=== PATIENT | female | born 1940 | race Caucasian/White ===

== ENCOUNTER 2016-11-28 13:15 | Inpatient (IN) | payer OTHER ==
[~2016-11-28] VITALS: Ht 160 cm; Wt 41.7 kg
[2016-11-28 13:30] VITALS: BP 136/72
--- NOTE | 2016-11-28 13:30 | NUR ---
PATIENT PRESENTS TO ED BY AMBULANCE . PT RESIDES IN [facility] ASSISTED LIVING RIGHT HIP/RLE S/P GLF TODAY. NO SHORTENING OR ROTATION OF RLE NOTED. SKIN PINK DRY WARM TO TOUCH. HX----DEMENTIA, HTN, COPD,TIA, GERD, PSYCH RX----ZANTAC, TRAZODONE, DEPAKOTE, ALBUTEROL, MOM, TYLENOL, AMLODIPINE,LYNDA ELLIPTA,COLACE, PEPCID, ATIVAN, OMEPRAZOLE, SEROQUEL,CELEXA. DENIES N/V/D; SKIN IS PINK/WARM/DRY; AAOX4 WITH EVEN AND STEADY GAIT; LUNGS CLEAR BL; HR EVEN AND REGULAR; PT DENIES ANY FEVER, CP, SOB, OR COUGH AT THIS TIME; PATIENT STATES PAIN OF 9/10 AT THIS TIME; VSS; PATIENT POSITIONED FOR COMFORT; HOB ELEVATED; BEDRAILS UP X2; BED DOWN. ER MD MADE AWARE OF PT STATUS.
[2016-11-28] MEDS ORDERED: HYDROmorphone 1 MG/ML AMP IM ONE (13:45)
[2016-11-28 15:37] LABS: BLOOD GAS BASE EXCESS 5.5 mmol/L (-2.0-2.0); BLOOD GAS HCO3 32.5 mmol/L; BLOOD GAS O2 SAT% 87.6 % (92.0-98.5); BLOOD GAS PCO2 58.8 mmHg (20-50); BLOOD GAS PO2 58.6 mmHg
--- NOTE | 2016-11-28 15:45 | NUR ---
XRAY TAKEN AT BEDSIDE
--- NOTE | 2016-11-28 16:10 | NUR ---
TO CT AT THIS TIME
--- NOTE | 2016-11-28 16:45 | NUR ---
TRANSFERRED PATIENT TO TELE IN STABLE CONDITION. REPORT GIVEN TO CUTTER DOWN. MADE COMFORTABLE IN BED. CALL LIGHT WITHIN REACH.
[2016-11-28] MEDS ORDERED: NACL 0.9% 1,000 ML IV SCH (17:29)
[2016-11-28] MEDS ORDERED: HYDROcodone/APAP 7.5/325 MG 1 TAB PO PRN (17:30)
[2016-11-28] MEDS ORDERED: ONDANSETRON 4 MG/2 ML VIAL IVP PRN ×2 (17:30→20:05)
[2016-11-28 17:55] LABS: HEMATOCRIT 35.6 % (36-48); HEMOGLOBIN 11.4 g/dL (12.0-16.0); MEAN CORPUSCULAR HEMOGLOBIN 30 pg (27-31); MEAN CORPUSCULAR HGB CONC 32 g/dL (33-37); MEAN CORPUSCULAR VOLUME 92 fL (80-94); PLATELET COUNT (AUTO) 156 K/uL (140-450); RED BLOOD CELL COUNT(AUTO) 3.88 MIL/uL (4.20-5.40); RED CELL DISTRIBUTION WIDTH 14.3 % (11.6-13.7); WHITE BLOOD COUNT (AUTO) 8.6 K/uL (4.8-10.8)
[2016-11-28 18:02] LABS: ANION GAP 9.9 (8-16); CALCIUM 8.7 mg/dL (8.5-10.1); CARBON DIOXIDE 33.2 mmol/L (21-32); CHLORIDE 103 mmol/L (98-107); CREATININE 0.6 mg/dL (0.6-1.3); GLUCOSE 115 mg/dL (74-106); POTASSIUM 4.1 mmol/L (3.5-5.1); SODIUM SERUM 142 mmol/L (136-145); UREA NITROGEN, BLOOD 22 mg/dL (7-18)
[2016-11-28 18:07] LABS: ALANINE AMINOTRANSFERASE 80 U/L (14-59); ALBUMIN 2.9 g/dL (3.4-5.0); ALKALINE PHOSPHATASE 146 U/L (46-116); ASPARTATE AMINOTRANSFERASE 43 U/L (15-37); TOTAL BILIRUBIN 0.6 mg/dL (0.0-1.0); TOTAL PROTEIN, SERUM 6.5 g/dL (6.4-8.2)
[2016-11-28 18:15] LABS: INR 1.1 (0.8-1.2); PARTIAL THROMBOPLASTIN TIME 28.6 secs (22-35.6); PROTHROMBIN TIME 11.3 secs (10.8-13.4)
[2016-11-28 18:16] LABS: BAND % (MANUAL) 9 % (0-8); EOSINOPHILS % (MANUAL) 1 % (0-4); LYMPHOCYTES % (MANUAL) 7 % (20-46); METAMYELOCYTES % 1 % (0-0); MONOCYTES % (MANUAL) 5 % (5-12); NEUTROPHILS % (MANUAL) 77 (43-65)
[2016-11-28 18:17] LABS: CHOL/HDL RATIO 2.2 (1-4.5); FREE T4 (FREE THYROXINE) 0.95 ng/dL (0.76-1.46); PHOSPHORUS 3.8 mg/dL (2.5-4.9); PLATELET ESTIMATE ADEQUATE; THYROID STIMULATING HORMONE 3.01 uIU/mL (0.34-3.74)
[2016-11-28 18:41] LABS: APPEARANCE,URINE HAZY (CLEAR); BILIRUBIN,URINE NEGATIVE (NEGATIVE); BLOOD, URINE NEGATIVE (NEGATIVE); COLOR,URINE YELLOW (YELLOW); LEUKOCYTE ESTERASE ,URINE NEGATIVE (NEGATIVE); NITRITE, URINE NEGATIVE (NEGATIVE); PROTEIN,URINE 1+ (NEGATIVE); UGLUCOSE NEGATIVE (NEGATIVE)
[2016-11-28 18:46] LABS: BACTERIA,URINE 1-9 (FEW) /HPF (None Seen); RBC,URINE 0-5 (RARE) /HPF (0-5)
[2016-11-28 18:55] LABS: AMPHETAMINE, URINE NEG. ng/ml (NEG <=1000); BARBITURATE, URINE NEG. ng/ml (NEG <=200); BENZODIAZEPINE, URINE NEG. ng/mL (NEG <=200); CANNABINOID, URINE NEG. ng/mL (NEG <=50); COCAINE, URINE NEG. ng/mL (NEG <=300); OPIATE, URINE NEG. ng/mL (NEG <=2000); PHENCYCLIDINE SCREEN,URINE NEG. ng/mL (NEG <=25)
--- NOTE | 2016-11-28 19:21 | NUR ---
ENDORSED PLAN OF CARE TO NIGHT RN. PT REMAINS STABLE.
[2016-11-28] MEDS: ACETAMINOPHEN 325 MG TAB PO PRN (19:26)
--- NOTE | 2016-11-28 19:30 | NUR ---
RECEIVED PATIENT REPORT AT BEDSIDE. PATIENT ASLEEP BUT AROUSABLE. PATIENT'S AND DAUGHTER PRESENT IN THE ROOM. ABRASION NOTED ON THE RIGHT SHOULDER AND RIGHT KNEE. IV NOTED TO THE LEFT UPPER ARM WITH IVF INFUSING WELL. PATIENT PLACED ON 3L 02 VIA NC. 02 SAT 92%. PATIENT PLACED ON TELE MONITORING. BED LOWERED WITH CALL LIGHT WITHIN REACH. WILL CONTINUE TO MONITOR
[2016-11-28 20:00] VITALS: BP 147/80
[2016-11-28] MEDS ORDERED: LORazepam 2 MG/ML VIAL IVP SCH ×2 (20:00→20:05)
--- NOTE | 2016-11-28 20:00 | NUR ---
TEMP 101.9. COOLING MEASURE IN PLACE. PRN TYLENOL ADMINISTERED. WILL CONTINUE TO MONITOR
[2016-11-28] MEDS ORDERED: HYDROcodone/APAP 5/325 MG 1 TAB TAB PO PRN (20:05)
[2016-11-28] MEDS ORDERED: MORPHINE SULFATE 2 MG/ML SYR IVP PRN (20:05)
[2016-11-28] MEDS ORDERED: AMLO5TAB PO (20:09)
[2016-11-28] MEDS ORDERED: CITA20TA15 PO (20:10)
[2016-11-28] MEDS ORDERED: DOCU-67 PO (20:11)
[2016-11-28] MEDS ORDERED: QUET25TA PO (20:12)
[2016-11-28] MEDS ORDERED: FAMO20TA13 PO (20:13)
[2016-11-28] MEDS ORDERED: ATI.5 PO (20:17)
[2016-11-28] MEDS ORDERED: [UNRECOGNIZED DRUG - CODE] PO (20:17)
[2016-11-28] MEDS ORDERED: RANI300S3 PO (20:17)
[2016-11-28] MEDS ORDERED: VALP250S5 PO (20:17)
[2016-11-28] MEDS ORDERED: LORazepam 0.5 MG TAB PO PRN (20:20)
[2016-11-28] MEDS ORDERED: ALBUTEROL SULFATE/IPRATROPIU 3 ML SOL IH PRN (20:25)
--- NOTE | 2016-11-28 20:30 | NUR ---
PIERCE'S TRACTION WITH 5LBS WEIGHT APPLIED TO THE PATIENT'S RIGHT LEG BY DR SUERO. PATIENT ASLEEP. NO S/S OF DISTRESS NOTED. WILL CONTINUE TO MONITOR
--- NOTE | 2016-11-28 20:45 | NUR ---
TEMP RECHECKED 99.3. PATIENT ASLEEP. NO S/S OF DISTRESS NOTED
[2016-11-28] MEDS: CITALOPRAM 20 MG TAB PO SCH (21:00)
[2016-11-28] MEDS: DOCUSATE SODIUM 100 MG GELCAP PO SCH (21:00)
[2016-11-28] MEDS ORDERED: NON-FORMULARY ITEM (Trazodone HCl 1 TAB) PO SCH (21:00)
[2016-11-28] MEDS: methylPREDNISolone SS 40 MG/ML VIAL IVP SCH ×2 (21:00→21:43)
[2016-11-28] MEDS: VALPROIC ACID 250 MG/5 ML UDC PO SCH (21:00)
[2016-11-28] MEDS ORDERED: DOCUSATE SODIUM 100 MG GELCAP PO SCH (21:00)
[2016-11-28] MEDS: QUEtiapine FUMARATE 25 MG TAB PO SCH (21:00)
--- NOTE | 2016-11-28 21:00 | NUR ---
SPOKE WITH DR REYNOLDS REGARDING SECOND DOSE OF SOLUMEDROL . NOTIFIED THAT FIRST DOSE WAS ADMINISTERED. PER DR, SECOND DOSE CAN BE ADMINISTERED TOMORROW MORNING. TO PUT ORDERS. PATIENT ON 3L O2. O2 SAT AT 95%
[2016-11-29] VITALS: BP 145/63
[2016-11-29] MEDS: DEXT 5% / NACL 0.9% 1,000 ML IV SCH ×3 (00:04→16:28)
[2016-11-29] MEDS: ALBUTEROL SULFATE/IPRATROPIU 3 ML SOL IH SCH ×4 (00:30→19:00)
[2016-11-29 04:00] VITALS: BP 124/58
--- NOTE | 2016-11-29 04:53 | NUR ---
PATIENT ASLEEP IN BED. NO S/S OF DISTRESS NOTED
[2016-11-29] MEDS: BUDESONIDE 0.25 MG/2 ML NEBU INH SCH ×2 (06:55→19:06)
[2016-11-29 06:56] LABS: HEMOGLOBIN 12.2 g/dL (12.0-16.0); MEAN CORPUSCULAR HEMOGLOBIN 30 pg (27-31); MEAN CORPUSCULAR HGB CONC 33 g/dL (33-37); MEAN CORPUSCULAR VOLUME 91 fL (80-94); PLATELET COUNT (AUTO) 136 K/uL (140-450); RED BLOOD CELL COUNT(AUTO) 4.05 MIL/uL (4.20-5.40); RED CELL DISTRIBUTION WIDTH 14.3 % (11.6-13.7); WHITE BLOOD COUNT (AUTO) 6.1 K/uL (4.8-10.8)
[2016-11-29 07:03] LABS: ANION GAP 7.4 (8-16); CALCIUM 8.8 mg/dL (8.5-10.1); CHLORIDE 104 mmol/L (98-107); CREATININE 0.6 mg/dL (0.6-1.3); GLUCOSE 148 mg/dL (74-106); POTASSIUM 4.4 mmol/L (3.5-5.1); SODIUM SERUM 141 mmol/L (136-145); UREA NITROGEN, BLOOD 26 mg/dL (7-18)
[2016-11-29 07:12] LABS: MAGNESIUM 2.1 mg/dL (1.8-2.4); PHOSPHORUS 3.9 mg/dL (2.5-4.9)
--- NOTE | 2016-11-29 07:27 | NUR ---
PATIENT REPORT GIVEN AT BEDSIDE. PATIENT ENDORSED IN STABLE CONDITION
--- NOTE | 2016-11-29 07:27 | NUR ---
RECEIVED REPORT FROM NIGHT NURSE, PT IS AAOX2, ON O2 3L VIA NC, RIGHT ELBOW ABRASION WITH DRESSING, RIGHT KNEE ABRASION OPEN TO AIR, IV LEFT UPPER ARM 20G INFUSING WELL, PT ON PIERCE'S TRACTION, INITIAL ASSESSMENT COMPLETED, REVIEWED PLAN OF CARE WITH PT, REINFORCEMENT NEEDED, ALL SAFETY PRECAUTIONS MET. CALL LIGHT WITHIN REACH, WILL CONTINUE TO MONITOR.
[2016-11-29 07:32] LABS: INR 1.1 (0.8-1.2); PARTIAL THROMBOPLASTIN TIME 30.8 secs (22-35.6); PROTHROMBIN TIME 11.1 secs (10.8-13.4)
[2016-11-29 08:00] VITALS: BP 149/61
[2016-11-29 08:16] LABS: BAND % (MANUAL) 3 % (0-8); BASOPHILS % (MANUAL) 0 % (0-2); EOSINOPHILS % (MANUAL) 0 % (0-4); LYMPHOCYTES % (MANUAL) 7 % (20-46); MONOCYTES % (MANUAL) 5 % (5-12); NEUTROPHILS % (MANUAL) 85 (43-65)
[2016-11-29 08:17] LABS: PLATELET ESTIMATE SLIGHTLY DECREASED
[2016-11-29] MEDS ORDERED: [UNRECOGNIZED DRUG - CODE] PO (08:55)
[2016-11-29] MEDS ORDERED: LORazepam 0.5 MG TAB PO PRN ×2 (09:00→13:05)
[2016-11-29] MEDS ORDERED: NON-FORMULARY ITEM (Ranitidine HCl (Ranitidine Hcl) 1 CAP) PO SCH (09:00)
[2016-11-29] MEDS: DOCUSATE SODIUM 100 MG GELCAP PO SCH ×2 (09:19→21:00)
[2016-11-29] MEDS: VALPROIC ACID 250 MG/5 ML UDC PO SCH ×2 (09:20→21:00)
[2016-11-29] MEDS: QUEtiapine FUMARATE 25 MG TAB PO SCH ×2 (09:20→21:00)
[2016-11-29] MEDS: amLODIPine 5 MG TAB PO SCH (09:21)
[2016-11-29] MEDS: FAMOTIDINE 20 MG TAB PO SCH (09:25)
--- NOTE | 2016-11-29 09:29 | NUR ---
MEDICATIONS GIVEN PT TOLERATED WELL. MEDICATIONS GIVEN ONE BY ONE. ALL SAFETY PRECAUTIONS MET, ALL NEEDS MET, CALL LIGHT WITHIN REACH. WILL CONTINUE TO MONITOR
--- NOTE | 2016-11-29 11:56 | NUR ---
CHECKED IN ON PT, NO S/S OF DISTRESS NOTED, DAUGHTER AT BEDSIDE. CALL LIGHT WITHIN REACH. WILL CONTINUE TO MONITOR.
[2016-11-29 12:02] VITALS: BP 135/54
--- NOTE | 2016-11-29 13:19 | NUR ---
PT AGAIN REFUSED BREATHING TX B\S ARE CLEAR AND NO SIGNS OF DISTRESS NOTED AND RN СВЕТЛАНА NOTIFIED
--- NOTE | 2016-11-29 14:25 | NUR ---
PT RESTING COMFORTABLY IN BED, NO S/S OF PAIN OR DISTRESS. CALL LIGHT WITHIN REACH, WILL CONTINUE TO MONITOR.
[2016-11-29 16:00] VITALS: BP 146/63
--- NOTE | 2016-11-29 16:05 | NUR ---
PT RESTING IN BED, ALL SAFETY PRECAUTIONS MET, CALL LIGHT WITHIN REACH, WILL CONTINUE TO MONITOR.
[2016-11-29 17:17] LABS: INR 1.1 (0.8-1.2); PROTHROMBIN TIME 11.6 secs (10.8-13.4)
--- NOTE | 2016-11-29 17:45 | NUR ---
PT CURRENTLY EATING DINNER, ALL NEEDS MET. WILL CONTINUE TO MONITOR.
--- NOTE | 2016-11-29 19:06 | NUR ---
PATIENT REFUSED HHN DUONEB AND PULMICORT, STATED SHE DOES NOT [facility] HHN ANYMORE AND ONLY WANTS THE RED PILL. PATIENT SEEMS CONFUSED
--- NOTE | 2016-11-29 19:14 | NUR ---
ENDORSED PLAN OF CARE TO NIGHT NURSE, PT STABLE CONDITION.
--- NOTE | 2016-11-29 19:15 | NUR ---
RECEIVED PATIENT REPORT AT BEDSIDE. PATIENT AWAKE AND ALERT. NO S/S OF DISTRESS NOTED. PATIENT ON 2L O2. NO C/O PAIN AT THIS TIME. PIERCE'S TRACTION IN PLACE. IV LINE TO THE LEFT UPPER ARM INTACT WITH IVF INFUSING WELL. TAVAREZ CATHETER IN PLACE. BED LOWERED WITH CALL LIGHT WITHIN REACH. WILL CONTINUE TO MONITOR
--- NOTE | 2016-11-29 20:00 | NUR ---
PATIENT REFUSES TO HAVE HER VITAL SIGNS TAKEN. WILL TRY AGAIN LATER
--- NOTE | 2016-11-29 20:30 | NUR ---
PATIENT REFUSES TO TAKE HER SCHEDULED MEDICATIONS. PATIENT EDUCATED ABOUT THE RISKS OF NOT TAKING HER MEDICATIONS. PATIENT UNABLE TO VERBALIZE UNDERSTANDING. PATIENT IS CONFUSED. PATIENT OFFERED TO HAVE MEDICATIONS WITH APPLE SAUCE. PATIENT REFUSED. WILL TRY AGAIN LATER
[2016-11-29] MEDS: traZODone 50 MG TAB PO SCH (21:00)
[2016-11-29] MEDS: CITALOPRAM 20 MG TAB PO SCH (21:00)
[2016-11-30] VITALS (7 sets, daily range): BP systolic 130–171; BP diastolic 58–72
--- NOTE | 2016-11-30 | NUR ---
PATIENT REFUSES TO HAVE HER VITAL SIGNS TAKEN. PATIENT GETS AGITATED
--- NOTE | 2016-11-30 00:10 | NUR ---
PATIENT IN AWAKE IN BED. NO S/S OF DISTRESS NOTED
[2016-11-30] MEDS: ALBUTEROL SULFATE/IPRATROPIU 3 ML SOL IH SCH ×4 (00:15→19:00)
--- NOTE | 2016-11-30 00:16 | NUR ---
PATIENT REFUSED TABITHA LIMA
--- NOTE | 2016-11-30 06:00 | NUR ---
MADE DR REYNOLDS AWARE THAT PATIENT REFUSED BLOOD DRAW. ALSO NOTIFIED THAT PATIENT REFUSED HER SCHEDULED MEDICATIONS
[2016-11-30] MEDS: BUDESONIDE 0.25 MG/2 ML NEBU INH SCH ×2 (06:39→19:03)
--- NOTE | 2016-11-30 07:25 | NUR ---
ASSUMED CONTINUITY OF CARE. NO SIGNS AND SYMPTOMS OF ACUTE DISTRESS NOTED. INITIAL ASSESSMENT DONE. RE-ORIENTED TO EVENTS AND SURROUNDINGS. KEEP COMFORTABLE ON BED. FALL PRECAUTION APPLIED. CALL LIGHT WITHIN REACH.
--- NOTE | 2016-11-30 07:33 | NUR ---
PATIENT REPORT GIVEN AT BEDSIDE. PATIENT ENDORSED IN STABLE CONDITION
--- NOTE | 2016-11-30 08:00 | NUR ---
Patient's Plan of Care was discussed and reviewed with TREE LOADER MEAT: GAY STEVENS
--- NOTE | 2016-11-30 08:45 | NUR ---
CALLED DR. RODRIGUEZ AND INFORMED THAT DR. LOW ORDER NPO EXCEPT MEDS. DR. RODRIGUEZ ORDERED VIA PHONE NOT TO GIVE 0900 SCHEDULED MEDICINE DUE TO PROCEDURE, READ BACK AND VERIFIED. INFORMED MARC ANGUIANO THAT DR. RODRIGUEZ ORDERED NOT TO GIVE 0900 SCHEDULED MEDS DUE TO PROCEDURE.
[2016-11-30] MEDS: MORPHINE SULFATE 2 MG/ML SYR IVP PRN ×2 (08:58→16:48)
[2016-11-30] MEDS: QUEtiapine FUMARATE 25 MG TAB PO SCH ×2 (09:00→21:59)
[2016-11-30] MEDS: FAMOTIDINE 20 MG TAB PO SCH (09:00)
[2016-11-30] MEDS: VALPROIC ACID 250 MG/5 ML UDC PO SCH ×2 (09:00→21:58)
[2016-11-30] MEDS: amLODIPine 5 MG TAB PO SCH (09:00)
[2016-11-30] MEDS: DOCUSATE SODIUM 100 MG GELCAP PO SCH ×2 (09:00→22:00)
--- NOTE | 2016-11-30 09:16 | NUR ---
DR. RODRIGUEZ CAME, CHECKED PT. CHART, AND SEEN PT..
--- NOTE | 2016-11-30 09:36 | NUR ---
PATIENT HAS BEEN SCREENED AND CATEGORIZED HIGH NUTRITION RISK. PATIENT WILL BE SEEN WITHIN 1-2 DAYS OF ADMISSION. 11/29/16-11/30/[address]
--- NOTE | 2016-11-30 09:38 | NUR ---
WENT TO OR VIA GURNEY ACCOMPANIED BY FAMILY MEMBERS. IN STABLE CONDITION. INFORMED CHARGE NURSE WILLIAM LAW.
[2016-11-30] MEDS ORDERED: SEVOFLURANE 250 ML BTL INH ONE (09:50)
[2016-11-30] MEDS ORDERED: PROPOFOL 200 MG/20 ML VIAL IV ONE (09:50)
[2016-11-30] MEDS ORDERED: fentaNYL 0.05 MG/ML VIAL ONE (09:57)
[2016-11-30] MEDS ORDERED: MEPERIDINE 50 MG/ML SYR ONE (09:58)
[2016-11-30] MEDS ORDERED: BACITRACIN 50000 UNITS/1 VIAL ONE (10:00)
[2016-11-30] MEDS ORDERED: ceFAZolin 1,000 MG VIAL ONE (10:05)
[2016-11-30] MEDS ORDERED: MEPERIDINE 25 MG/ML SYR IVP PRN (10:50)
[2016-11-30] MEDS ORDERED: diphenhydrAMINE 50 MG/ML VIAL IVP PRN (10:50)
[2016-11-30] MEDS ORDERED: ONDANSETRON 4 MG/2 ML VIAL IVP PRN (10:50)
[2016-11-30] MEDS ORDERED: HYDROmorphone 1 MG/ML AMP IVP PRN (10:50)
[2016-11-30] MEDS ORDERED: BUPIVACAINE-MPF 0.5% 30 ML VIAL INJ ONE (11:10)
[2016-11-30] MEDS: DEXT 5% / NACL 0.9% 1,000 ML IV SCH (11:30)
--- NOTE | 2016-11-30 12:36 | NUR ---
PT BACK FROM SURGERY REFUSED BREATHING TX NO SIGNS OF DISTRESS NOTED
--- NOTE | 2016-11-30 14:02 | NUR ---
PULLED OUT TELE MONITOR AND REFUSED APPLICATION. NO DISTRESS NOTED. INFORMED REBECCA ANGUIANO THAT PT. REFUSED TELE MONITOR. ALSO INFORMED CHARGE NURSE WILLIAM LAW.
--- NOTE | 2016-11-30 14:04 | NUR ---
11/30/16 RD INITIAL ASSESSMENT COMPLETED PLEASE REFER TO NUTRITION ASSESSMENT UNDER CARE ACTIVITY FOR ESTIMATED NUTRITIONAL NEEDS. 1. WHEN MEDICALLY FEASIBLE, INITIATE PO DIET - TO START ON CLEAR LIQUID DIET AND ADVANCE TOLERATED TO REGULAR DIET 2. RD TO FOLLOW-UP 2-3 DAYS; HIGH RISK JOSE ALEJANDRO SMILEY, [place]
[2016-11-30] MEDS ORDERED: QUEtiapine FUMARATE 25 MG TAB PO SCH (14:53)
[2016-11-30] MEDS ORDERED: VALPROIC ACID 250 MG/5 ML UDC PO SCH (14:53)
[2016-11-30] MEDS ORDERED: amLODIPine 5 MG TAB PO SCH (15:14)
--- NOTE | 2016-11-30 15:14 | NUR ---
EXPLAINED MD ORDER, AND MEDICATION USAGE AND INDICATIONS. NON-COMPLIANT. REFUSED DEPAKENE [address] LOW THAT PT. REFUSED DEPAKENE [address] LOW SPOKE TO PT. REGARDING MEDICINE, PT. STILL REFUSED. INFORMED CHARGE NURSE WILLIAM LAW.
[2016-11-30] MEDS ORDERED: hydrALAZINE 20 MG/ML VIAL IVP PRN (15:20)
--- NOTE | 2016-11-30 15:25 | NUR ---
PT REFUSED TO BE INSTRUCTED ON IS AND LALO STEVENS NOTIFIED I.S IS AT BEDSIDE
--- NOTE | 2016-11-30 15:27 | NUR ---
RT -THUAN CAME FOR IS USE FOR POST-OP CARE. PT. REFUSED. EXPLAINED TO PT. IMPORTANCE OF IS FOR POST-OP. PT. STATES "NO, I DON'T WANT IT." IN A LOUD TONE OF VOICE. INFORMED WILLIAM TORRES -LALO.
--- NOTE | 2016-11-30 16:30 | NUR ---
CALLED TO PT'S ROOM DUE TO PT DESAT TO 87% PLACED PT ON 7L SIMPLE MASK AND PT WAS VERY AGITATED WITH STAFF DID NOT WANT TO HAVE MASK ON RN THOMAS AND LALO STEVENS AT BEDSIDE O2 SAT STARTING COMING UP TO 90% LALO GUZMAN HAD DR ORDER PAIN MED FOR PT THEN RT MARTHA PLACED PT ON OXYZIMER AT 6L AND O2 SAT WAS 97% AND PT WAS GIVEN MORPHINE FOR HER PAIN WHICH HELPED HER BREATHING PT STATED SHE DID NOT WANT BREATHING TX. PT IS STILL BREATHING FAST ABOUT 24 BPM HR IS 73 AND O2 SAT IS 98%
--- NOTE | 2016-11-30 17:40 | NUR ---
RESTING ON BED COMFORTABLY. NO SIGNS AND SYMPTOMS OF ACUTE DISTRESS NOTED. CONTINUE MONITORING.
--- NOTE | 2016-11-30 19:03 | NUR ---
patient refused HHN MEDICTION TREATMENT AND REFUSED INCENTIVE SPIROMETER. HR 71, SAO2 97% RR16, NO SIGNS OF RESP. DISTRESS
[2016-11-30] MEDS: LACTATED RINGERS 1,000 ML IV SCH (19:07)
--- NOTE | 2016-11-30 19:15 | NUR ---
BEDSIDE REPORT GIVEN TO SYDNEY LAW. IVF INFUSING WELL. IN STABLE CONDITION.
--- NOTE | 2016-11-30 19:30 | NUR ---
RECEIVED REPORT FROM AM NURSE. PT RESTING IN BED, AOX2, ABLE TO VERBALIZE NEEDS. PT IS REFUSING PALLIATIVE CARE NURSE PRACTITIONER AT THIS TIME, WILL TRY AGAIN LATER AND WILL NOTIFY MD. PT ON 6L O2 OXYMIZER, SPO2 97%, RR 20, NO SOB. PT IS REFUSING TO USE INCENTIVE SPIROMETER DESPITE EDUCATION OF INDICATION AND RISKS/BENEFITS, WILL NOTIFY MD. RIGHT HIP DRESSING NOTED, CLEAN DRY AND INTACT. PT DENIES PAIN, SOB OR S/S OF ACUTE DISTRESS. IV ACCESS ASYMPTOMATIC, PATENT AND INTACT. IVF INFUSING WELL. ALL NEEDS MET. BED ALARM AND SAFETY MEASURES ENSURED. CALL LIGHT WITHIN REACH. WILL CONTINUE TO MONITOR.
[2016-11-30] MEDS: traZODone 50 MG TAB PO SCH (21:58)
[2016-11-30] MEDS: CITALOPRAM 20 MG TAB PO SCH (21:59)
--- NOTE | 2016-11-30 21:59 | NUR ---
PT AGREED TO PUT ON HEAD MIXER AT THIS TIME. CONDITION STABLE.
--- NOTE | 2016-11-30 22:05 | NUR ---
PT REFUSED HER DUE MEDICATIONS AT FIRST DESPITE EDUCATION, STATING "I DON'T WANT TO TAKE THEM, IT'S TOO EARLY, YOU CAME AT THE WRONG TIME." MADE DR CARLIE REBOLLAR, TO SEE PT AT BEDSIDE. PT AGREED TO TAKE MEDICATIONS AT THIS TIME. DUE MEDICATIONS ADMINISTERED WITH EDUCATION. PT TOLERATED MEDS WELL. PT REFUSED TO USE INCENTIVE SPIROMETER DESPITE EDUCATION. MD AWARE. ALL NEEDS MET. SAFETY MEASURES ENSURED. CALL LIGHT WITHIN REACH.
[2016-12-01] VITALS (7 sets, daily range): BP systolic 120–151; BP diastolic 50–76
[2016-12-01] MEDS: DEXT 5% / NACL 0.9% 1,000 ML IV SCH ×3 (00:06→22:03)
--- NOTE | 2016-12-01 00:15 | NUR ---
PT SLEEPING COMFORTABLY. PT O2 OXYMIZER IN PLACE. TAVAREZ CATH DRAINING WELL. IVF INFUSING WELL. ALL NEEDS MET. SAFETY MEASURES ENSURED. CALL LIGHT WITHIN REACH. WILL CONTINUE TO MONITOR.
[2016-12-01] MEDS: ALBUTEROL SULFATE/IPRATROPIU 3 ML SOL IH SCH ×4 (01:00→19:00)
[2016-12-01] MEDS: LACTATED RINGERS 1,000 ML IV SCH (03:27)
--- NOTE | 2016-12-01 04:48 | NUR ---
PT C/O PAIN. SEE PAIN ASSESSMENT. ADMINISTERED NORCO PRN ORDERED WITH EDUCATION. PT STATED "OKAY," TOLERATED MED WELL. IVPB INFUSING WELL. ALL NEEDS MET AT THIS TIME. SAFETY MEASURES ENSURED. CALL LIGHT WITHIN REACH. WILL CONTINUE TO MONITOR .
[2016-12-01] MEDS: BUDESONIDE 0.25 MG/2 ML NEBU INH SCH ×2 (06:36→19:06)
--- NOTE | 2016-12-01 06:39 | NUR ---
PT REFUSES HHNS DECREASED FIO2 FROM 6L OXYMIZER TO 3L OXYMIZER SPO2 98
[2016-12-01 07:07] LABS: BASOPHILS % (AUTO) 0.5 % (0.0-2.0); EOSINOPHILS # (AUTO) 0.4 K/uL (0-0.4); EOSINOPHILS % (AUTO) 7.1 % (0.0-4.0); HEMATOCRIT 31.4 % (36-48); HEMOGLOBIN 10.1 g/dL (12.0-16.0); LYMPHOCYTES # (AUTO) 0.5 K/uL (2.5-16.5); LYMPHOCYTES % (AUTO) 9.2 % (20.5-51.1); MEAN CORPUSCULAR HEMOGLOBIN 30 pg (27-31); MEAN CORPUSCULAR HGB CONC 32 g/dL (33-37); MEAN CORPUSCULAR VOLUME 92 fL (80-94); MONOCYTES # (AUTO) 0.8 K/uL (0.8-1.0); MONOCYTES % (AUTO) 15.2 % (1.7-9.3); NEUTROPHILS # (AUTO) 3.6 K/uL (1.8-7.7); PLATELET COUNT (AUTO) 139 K/uL (140-450); RED BLOOD CELL COUNT(AUTO) 3.43 MIL/uL (4.20-5.40); RED CELL DISTRIBUTION WIDTH 14.5 % (11.6-13.7); WHITE BLOOD COUNT (AUTO) 5.3 K/uL (4.8-10.8)
--- NOTE | 2016-12-01 07:18 | NUR ---
ENDORSED PLAN OF CARE TO AM NURSE. CONDITION STABLE.
--- NOTE | 2016-12-01 07:25 | NUR ---
REPORT RECEIVED FROM NIGHT NURSE, NO PT COMPLAINTS AT THIS TIME, CALL LIGHT WITHIN REACH, SAFETY MEASURES WITHIN REACH, WILL MONITOR.
[2016-12-01 07:32] LABS: MAGNESIUM 1.7 mg/dL (1.8-2.4); PHOSPHORUS 3.2 mg/dL (2.5-4.9)
[2016-12-01 07:41] LABS: INR 1.2 (0.8-1.2); PROTHROMBIN TIME 11.8 secs (10.8-13.4)
[2016-12-01 07:55] LABS: CREATININE 0.5 mg/dL (0.6-1.3); GLUCOSE 122 mg/dL (74-106); UREA NITROGEN, BLOOD 11 mg/dL (7-18)
[2016-12-01 08:01] LABS: ANION GAP 6.3 (8-16); CARBON DIOXIDE 32.6 mmol/L (21-32); CHLORIDE 103 mmol/L (98-107); POTASSIUM 3.9 mmol/L (3.5-5.1); SODIUM SERUM 138 mmol/L (136-145)
[2016-12-01] MEDS: QUEtiapine FUMARATE 25 MG TAB PO SCH ×2 (09:46→20:37)
[2016-12-01] MEDS: CYCLOBENZAPRINE 10 MG TAB PO SCH (09:46)
[2016-12-01] MEDS: FAMOTIDINE 20 MG TAB PO SCH (09:47)
[2016-12-01] MEDS: amLODIPine 5 MG TAB PO SCH (09:47)
[2016-12-01] MEDS: DOCUSATE SODIUM 100 MG GELCAP PO SCH ×2 (09:47→20:35)
--- NOTE | 2016-12-01 09:47 | NUR ---
MORNING MEDS GIVEN WITH TEACHING, PT VERBALIZED UNDERSTANDING, PT HAD NO COMPLAINTS, ASSISTED TO BATHROOM, ASSISTED BACK TO BED, SAFETY MEASURES ENSURED, CALL LIGHT WITHIN REACH, WILL MONITOR. Addendum: 12/01/16 at 1126 by Irma Guadarrama RN CHARTED FOR DIFFERENT PT, PT NOT ASSISTED TO BATHROOM, PT HAS A TAVAREZ CATHETER, THE FAMILY IS AT THE PATIENT BEDSIDE.
[2016-12-01] MEDS: VALPROIC ACID 250 MG/5 ML UDC PO SCH ×2 (09:48→20:36)
[2016-12-01] MEDS: HYDROcodone/APAP 5/325 MG 1 TAB TAB PO PRN ×2 (09:49→20:42)
--- NOTE | 2016-12-01 11:47 | NUR ---
PT HAS NO COMPLAINTS, FAMILY AT BEDSIDE, PT SITTING IN CHAIR AFTER PT ASSIST, VITALS TAKEN, SAFETY MEASURES, CALL LIGHT, WILL MONITOR.
--- NOTE | 2016-12-01 11:57 | NUR ---
SS NOTE: I SPOKE WITH PT'S , PEGGY MORTON. HE STATED THAT HE WOULD PREFER TO HAVE PT GO TO [facility] UPON DISCHARGE FOR REHAB IF POSSIBLE. HE ALSO STATED THAT HIS DTR, NABIL HAS TAKEN OVER MEDICAL DECISION MAKING FOR PT BUT HE WOULD STILL LIKE PT CLOSE BY SO HE CAN VISIT HER OFTEN. I INFORMED HIM THAT WE ARE AWAITING RECOMMENDATIONS FROM PHYSICAL THERAPY.
--- NOTE | 2016-12-01 14:33 | NUR ---
PT LYING IN BED, NO COMPLAINTS OF DISCOMFORT OR PAIN, CALL LIGHT WITHIN REACH, SAFETY ENSURED WILL MONITOR.
--- NOTE | 2016-12-01 15:42 | NUR ---
CLINICAL REVIEW DONE.
[2016-12-01] MEDS ORDERED: FERROUS SULFATE 325 MG TABEC PO SCH (15:57)
[2016-12-01] MEDS ORDERED: MAGNESIUM OXIDE 400 MG TAB PO SCH (15:57)
--- NOTE | 2016-12-01 16:13 | NUR ---
PT REFUSING TO HAVE TAVAREZ CATHETER OUT, MADE AWARE AND SPOKE WITH PT, PT STILL REFUSED TO HAVE TAVAREZ REFUSED. CALL LIGHT WITHIN REACH, SAFETY MEASURES ENSURED, WILL MONITOR.
--- NOTE | 2016-12-01 19:03 | NUR ---
PT CONFUSED, SHE REFUSED HHN AND SHE DIDN NOT LET ME TO CK HER SATURATION, NO DISTRESS NOTED
--- NOTE | 2016-12-01 19:15 | NUR ---
RECEIVED FROM AM RN IN BED AWAKE AND WATCHING TV. VISITOR AT BEDSIDE. RE-ORIENTED TO CALL LIGHT USE AND CARE PLAN FOR THE NIGHT DISCUSSED WITH HER. DX. OF FEMORAL NECK FRACTURE AND HIP PINNING PROCEDURE DONE YESTERDAY.
--- NOTE | 2016-12-01 19:29 | NUR ---
ENDORSED PLAN OF CARE TO NIGHT RN. PT REMAINS STABLE.
[2016-12-01] MEDS: CITALOPRAM 20 MG TAB PO SCH (20:35)
[2016-12-01] MEDS: traZODone 50 MG TAB PO SCH (20:36)
--- NOTE | 2016-12-01 20:52 | NUR ---
PT. TOLERATED ALL P.O. MEDICATIONS TAKEN WELL. MEDICATED WITH NORCO REQUESTED RT HIP PAIN COMPLAINT. TAVAREZ CATHETER STILL IN PLACE INSPITE OF MD ORDER THIS AM TO DISCONTINUE IT. PT. STATED "NO" LEAVE IT. PER AM RN PT. REFUSED TOO TO HAVE IT DISCONTINUED THIS AM ORDERED.
--- NOTE | 2016-12-02 | NUR ---
SLEEPING. PT. NEEDS ANTICIPATED AND MET. ABLE TO VERBALIZE WELL. TELEMETRY MONITORING. F/C IN PLACE AND DRAINING WELL WITH YELLOW URINE.
[2016-12-02] MEDS: ALBUTEROL SULFATE/IPRATROPIU 3 ML SOL IH SCH ×4 (01:00→19:20)
--- NOTE | 2016-12-02 02:28 | NUR ---
SLEEPING. NO RESTLESSNESS NOTED. NO COMPLAINTS DONE. TELEMETRY MONITORING. CALL LIGHT WITH IN REACH AT BEDSIDE.
[2016-12-02 04:00] VITALS: BP 122/60
--- NOTE | 2016-12-02 04:00 | NUR ---
SLEEPING WELL. WAKES UP WHEN TOUCHED. TELEMETRY MONITORING.
[2016-12-02 06:41] LABS: HEMOGLOBIN 10.4 g/dL (12.0-16.0); MEAN CORPUSCULAR HEMOGLOBIN 29 pg (27-31); MEAN CORPUSCULAR HGB CONC 32 g/dL (33-37); MEAN CORPUSCULAR VOLUME 90 fL (80-94); PLATELET COUNT (AUTO) 123 K/uL (140-450); RED BLOOD CELL COUNT(AUTO) 3.57 MIL/uL (4.20-5.40); RED CELL DISTRIBUTION WIDTH 14.4 % (11.6-13.7); WHITE BLOOD COUNT (AUTO) 4.2 K/uL (4.8-10.8)
[2016-12-02 06:54] LABS: CALCIUM 8.2 mg/dL (8.5-10.1); CREATININE 0.5 mg/dL (0.6-1.3); GLUCOSE 107 mg/dL (74-106); UREA NITROGEN, BLOOD 6 mg/dL (7-18)
[2016-12-02 06:58] LABS: PHOSPHORUS 2.9 mg/dL (2.5-4.9)
--- NOTE | 2016-12-02 06:59 | NUR ---
AWAKE CONFUSED PATIENT REFUSING HHN THERAPY PATIENT STATES THAT SHE HASN'T HAD THOSE MEDICATIONS FOR A LONG TIME I'M NOT TAKING THEM" PATIENT ASSESSMENT DONE SUAD/RN NOC NOTIFIED
[2016-12-02 07:00] LABS: CHLORIDE 107 mmol/L (98-107)
[2016-12-02] MEDS: BUDESONIDE 0.25 MG/2 ML NEBU INH SCH ×2 (07:00→19:30)
[2016-12-02 07:03] LABS: ANION GAP 5.3 (8-16); CARBON DIOXIDE 34.3 mmol/L (21-32); POTASSIUM 3.6 mmol/L (3.5-5.1); SODIUM SERUM 143 mmol/L (136-145)
--- NOTE | 2016-12-02 07:36 | NUR ---
SLEPT WELL THIS SHIFT. ENDORSED TO THE NEXT RN FOR CONTINUITY OF CARE. TELEMETRY MONITORING.
--- NOTE | 2016-12-02 07:37 | NUR ---
RECEIVED REPORT FROM THE EMERGENCY MAN NURSE AT BEDSIDE. PT IS ASLEEP. WILL BE BACK TO ASSESS PT. NOTED IV ON L UA 20G D5 NS AT 80ML INFUSING.
[2016-12-02 08:00] VITALS: BP 138/63
--- NOTE | 2016-12-02 08:10 | NUR ---
V/S WITHIN NORMAL RANGE. INTRODUCED MYSELF AND UPDATED THE BOARD. BREAKFAST SERVED. PT ON OXIMIZER 2L , DAYSI STILL IN PLACE. WILL D/C TODAY. PT HAS BRUISE ON L HAND/WRIST. ABRASION ON R ELBOW ANAD R KNEE FROM FALL. PT HAS R DRESSING ON HIP, DRY AND INTACT. S/P HIP PINNING SURGERY. C/O OF BACK AND HIP PAIN. WILL MEDICATE WITH MORNING MEDS. DAUGHTER AND SPOUSE HERE. RECEIVED ORDERS TO RIP TAVAREZ AND TRANSFER TO MS. WILL REMOVE TELE MONITOR. WILL CONTINUE TO MONITOR.
[2016-12-02] MEDS: DOCUSATE SODIUM 100 MG GELCAP PO SCH ×2 (08:52→20:31)
[2016-12-02] MEDS: CYCLOBENZAPRINE 10 MG TAB PO SCH (08:52)
[2016-12-02] MEDS: HYDROcodone/APAP 5/325 MG 1 TAB TAB PO PRN (08:52)
[2016-12-02] MEDS: QUEtiapine FUMARATE 25 MG TAB PO SCH ×2 (08:52→20:31)
[2016-12-02] MEDS: amLODIPine 5 MG TAB PO SCH (08:53)
[2016-12-02] MEDS: VALPROIC ACID 250 MG/5 ML UDC PO SCH ×2 (08:54→20:31)
[2016-12-02] MEDS: FAMOTIDINE 20 MG TAB PO SCH (08:56)
--- NOTE | 2016-12-02 09:00 | NUR ---
ADMINISTERED MEDS. PT TOLERATED WELL. WANTED PAIN MED. ADMINISTERED NORCO. SHE NEEDS TO USE THE BEDPAN. WOULD LIKE TO BE MEDICATED. WILL GET KITCHEN MANAGER TO ASSIST. REMOVED TAVAREZ CATH AND REMOVED TELE MONITOR.
--- NOTE | 2016-12-02 09:15 | NUR ---
PT HAD SMALL BM TODAY. EARLY CHILDHOOD EDUCATION INSTRUCTOR CLEANED PT UP. PT TOLERATED WELL.
[2016-12-02 09:41] LABS: BAND % (MANUAL) 3 % (0-8); EOSINOPHILS % (MANUAL) 3 % (0-4); LYMPHOCYTES % (MANUAL) 24 % (20-46); MONOCYTES % (MANUAL) 11 % (5-12); NEUTROPHILS % (MANUAL) 59 (43-65); PLATELET ESTIMATE SLIGHTLY DECREASED
--- NOTE | 2016-12-02 09:45 | NUR ---
P/T CAME TO WORK WITH PT.
--- NOTE | 2016-12-02 11:55 | NUR ---
12/02/16 RD FOLLOW-UP ASSESSMENT COMPLETED PLEASE REFER TO NUTRITION ASSESSMENT UNDER CARE ACTIVITY FOR ESTIMATED NUTRITIONAL NEEDS. 1. CONTINUE REGULAR DIET 2. ADD HEALTH SHAKE TID 3. RD TO FOLLOW-UP MODERATE RISK, 3-[address]
[2016-12-02] MEDS: DEXT 5% / NACL 0.9% 1,000 ML IV SCH (12:18)
--- NOTE | 2016-12-02 12:30 | NUR ---
PT REQUESTED A SANWICH INSTEAD OF LUNCH TRAY. WILL CALL [facility]
--- NOTE | 2016-12-02 13:02 | NUR ---
AWAKE AND CONFUSED PATIENT REFUSING HHN THERAPY THOMAS/LALO NOTIFIED
--- NOTE | 2016-12-02 13:21 | NUR ---
SS NOTE: PER DEBORAH FROM [facility] ([phone]), THEY ARE ABLE TO ACCEPT PT WHEN PT IS READY FOR DISCHARGE AND PT CAN GO TO ROOM 30C UNDER DR. SIMON. I SPOKE WITH PT'S DTR-IN-LAW, NABIL WHO HAS POWER OF TRANSPORTATION ANALYST. I INFORMED HER THAT PT'S , PEGGY WOULD LIKE TO KEEP PT CLOSE AND [facility]. SHE STATED THAT SHE WILL TOUR THE FACILITY AND LET ME KNOW IF SHE WOULD LIKE PT TO GO THERE FOR REHAB UPON DISCHARGE.
--- NOTE | 2016-12-02 14:00 | NUR ---
PT ATE HALF OF HAM AND CHEESE SANDWICH. ASSISTED PT WITH CALLING HER DAUGHTER IN [place]. NO COMPLAINTS AT THIS TIME. WILL CONTINUE TO MONITOR PT.
[2016-12-02 16:00] VITALS: BP 134/57
--- NOTE | 2016-12-02 16:00 | NUR ---
SKI PATROLLER CLEANED AND CHANGED PT. PT TOLERATED WELL. NO SIGNS OF DISTRESS. WILL CONTINUE TO MONITOR PT.
--- NOTE | 2016-12-02 17:00 | NUR ---
SS NOTE: I RECEIVED A CALL FROM PT'S DTR-IN-LAW, NABIL (POA) AND SHE STATED THAT THEY WENT TO SEE [facility] AND DIDN'T LOVE IT BUT WOULD CONSIDER IT IF PT WAS PLACED IN A 2 PERSON ROOM INSTEAD OF A 3 PERSON ROOM. SHE ALSO STATED THAT SHE WANTED TO SEE IF [facility] [place] HAD AVAILABILITY FOR PT.
--- NOTE | 2016-12-02 17:20 | NUR ---
WANTED TO USE THE BEDPAN. UNABLE TO URINATE. TOO MUCH PAIN FROM THE BEDPAN. PT STARTED TO BREATHE SHALLOW, MORE RAPID. GETTING MORE CONFUSED. ENCOURAGED HER TO BREATHE MORE SLOWLY AND DEEPER. INCREASED O2 TO 4L AND DECREASED TO 3L. ADMINISTERED O2 SAT MONITOR. SATURATION AT 90-92%. ENCOURAGED HER TO LOOK AT THE MONITOR AND TRY TO MANAGE HER BREATHING. PT DOING BETTER. NOW BACK DOWN TO 2L, O2 SAT AT 93%. PT CALM. WILL CONTINUE TO MONITOR PT.
--- NOTE | 2016-12-02 19:29 | NUR ---
ENDORSED PT TO THE BUSINESS REPORTER NURSE AT BEDSIDE FOR CONTINUITY OF CARE. PT IS AWAKE. O2 SAT AT 93%. BREATHING NORMAL. PT IN STABLE CONDITION.
--- NOTE | 2016-12-02 19:30 | NUR ---
RECEIVED FROM AM RN IN BED AWAKE. ABLE TO VERBALIZE SIMPLE NEEDS. TOTAL CARE. PT. S/P RIGHT HIP PINNING . BED ALARM ON . WITH OVERHEAD TRAPEZE AND CALL LIGHT WITH IN REACH. CARE PLANS FOR THE NIGHT DISCUSSED WITH HER.
[2016-12-02] MEDS: traZODone 50 MG TAB PO SCH (20:30)
[2016-12-02] MEDS: CITALOPRAM 20 MG TAB PO SCH (20:31)
--- NOTE | 2016-12-02 23:49 | NUR ---
ENDORSED TO THE NEXT RN FOR CONTINUITY OF CARE. SLEEPING. WAKES UP WHEN TOUCHED.
[2016-12-03] VITALS: BP 158/67
[2016-12-03] MEDS: ALBUTEROL SULFATE/IPRATROPIU 3 ML SOL IH SCH ×4 (01:00→19:00)
[2016-12-03] MEDS: DEXT 5% / NACL 0.9% 1,000 ML IV SCH ×2 (02:00→14:30)
--- NOTE | 2016-12-03 02:00 | NUR ---
PT. RETURNED BACK TO ME BY OTHER RN FOR CONTINUITY OF CARE. SLEEPING. NO SOB. ON OYMIZER.
[2016-12-03] MEDS: HYDROcodone/APAP 5/325 MG 1 TAB TAB PO PRN ×2 (04:52→10:31)
--- NOTE | 2016-12-03 05:23 | NUR ---
AWAKE AT THIS TIME. PT. MEDICATED WITH NORCO REQUESTED RT C/O RIGHT HIP PAIN. MEDICATED REQUESTED. AM PERSONAL HYGIENE RENDERED. KEPT COMFORTABLE AND CLEAN.
[2016-12-03 06:44] LABS: BASOPHILS # (AUTO) 0.1 K/uL (0.00-0.22); BASOPHILS % (AUTO) 1.3 % (0.0-2.0); EOSINOPHILS # (AUTO) 0.3 K/uL (0-0.4); EOSINOPHILS % (AUTO) 8.2 % (0.0-4.0); HEMOGLOBIN 9.4 g/dL (12.0-16.0); LYMPHOCYTES # (AUTO) 0.6 K/uL (2.5-16.5); LYMPHOCYTES % (AUTO) 14.3 % (20.5-51.1); MEAN CORPUSCULAR HEMOGLOBIN 30 pg (27-31); MEAN CORPUSCULAR HGB CONC 32 g/dL (33-37); MEAN CORPUSCULAR VOLUME 92 fL (80-94); MONOCYTES # (AUTO) 0.6 K/uL (0.8-1.0); MONOCYTES % (AUTO) 13.8 % (1.7-9.3); NEUTROPHILS # (AUTO) 2.6 K/uL (1.8-7.7); NEUTROPHILS % (AUTO) 62.4 % (42.2-75.2); PLATELET COUNT (AUTO) 148 K/uL (140-450); RED BLOOD CELL COUNT(AUTO) 3.15 MIL/uL (4.20-5.40); RED CELL DISTRIBUTION WIDTH 14.1 % (11.6-13.7); WHITE BLOOD COUNT (AUTO) 4.2 K/uL (4.8-10.8)
[2016-12-03 07:04] LABS: ANION GAP 2.1 (8-16); CALCIUM 8.1 mg/dL (8.5-10.1); CARBON DIOXIDE 35.6 mmol/L (21-32); CHLORIDE 107 mmol/L (98-107); CREATININE 0.5 mg/dL (0.6-1.3); GLUCOSE 106 mg/dL (74-106); POTASSIUM 3.7 mmol/L (3.5-5.1); SODIUM SERUM 141 mmol/L (136-145); UREA NITROGEN, BLOOD 8 mg/dL (7-18)
[2016-12-03 07:15] LABS: MAGNESIUM 1.8 mg/dL (1.8-2.4); PHOSPHORUS 2.5 mg/dL (2.5-4.9)
--- NOTE | 2016-12-03 07:28 | NUR ---
REPORT RECEIVED FROM RAPIER INSERTION LOOM FIXER, PT SLEEPING QUIETLY, RESP EVEN UNLABORED ON 3L NC IN NAD, SKIN WARM DRY COLOR WNL, PT AROUSES EASILY, PLAN OF CARE REVIEWED, RIGHT HIP DRESSING CDI, SAFETY MEASURES IN PLACE, WILL CONTINUE TO MONITOR.
[2016-12-03] MEDS: BUDESONIDE 0.25 MG/2 ML NEBU INH SCH ×2 (07:30→19:30)
--- NOTE | 2016-12-03 07:38 | NUR ---
ENDORSED TO THE NEXT RN FOR CONTINUTIY OF CARE.
[2016-12-03 08:00] VITALS: BP 138/54
--- NOTE | 2016-12-03 08:05 | NUR ---
DR. AQUILES MIRANDA ALONG WITH RESIDENTS AT BEDSIDE FOR PATIENT REVIEW FOREMENTIONED REMOVED SUPPLEMENTAL OXYGEN AT 3 LPM VIA OXYMIZER BALLOON SELLER TO MONITOR
--- NOTE | 2016-12-03 08:15 | NUR ---
AWAKE AND ALERT SPEAKING WITH CLEAR AND CONCISE WORDS IN HFW POSITION BREATH SOUNDS CLEAR BILATERAL WITH GOOD DEEP CHEST RISE SATURATION DECREASED TO 78% ON ROOM AIR BPM INCREASED TO 28 PATIENT REFUSING HHN THERAPY PLACED PATIENT ON SUPPLEMENTAL OXYGEN AT 3LPM VIA NC DR. AQUILES MIRANDA AWARE Addendum: 12/03/16 at 0845 by Gabriel Salmeron RT IF PATIENT DOSE NOT SUSTAIN ADEQUATE SATURATION LEVEL OF EQUAL OR GREATER THAN 90% OK TO PUT ON OXYMIZER AT [address] AQUILES MIRANDA AWARE
--- NOTE | 2016-12-03 08:25 | NUR ---
SATURATION 91%-92% ON SUPPLEMENTAL OXYGEN AT [address] AQUILES MIRANDA AWARE
--- NOTE | 2016-12-03 08:35 | NUR ---
DR. LOW AWARE OF SATURATION LEVEL OF 91%-92% ON SUPPLEMENTAL OXYGEN AT 3 LPM VIA TN MD WILL INITIATE OXYGEN ORDER FOR EQUAL OR GREATER THAN 90%
[2016-12-03] MEDS: VALPROIC ACID 250 MG/5 ML UDC PO SCH ×2 (08:45→21:34)
[2016-12-03] MEDS: CYCLOBENZAPRINE 10 MG TAB PO SCH (08:46)
[2016-12-03] MEDS: QUEtiapine FUMARATE 25 MG TAB PO SCH ×2 (08:46→21:34)
[2016-12-03] MEDS: DOCUSATE SODIUM 100 MG GELCAP PO SCH ×2 (08:46→21:34)
[2016-12-03] MEDS: amLODIPine 5 MG TAB PO SCH (08:46)
[2016-12-03] MEDS: FAMOTIDINE 20 MG TAB PO SCH (08:46)
[2016-12-03] MEDS: FERROUS SULFATE 325 MG TABEC PO SCH (08:47)
--- NOTE | 2016-12-03 09:01 | NUR ---
PHYSICAL THERAPY TOMMY, PT UP IN CHAIR AT THIS TIME
--- NOTE | 2016-12-03 11:53 | NUR ---
SS NOTE: PER DEBORAH FROM [facility], THEY ARE ABLE TO PLACE PT IN A 2 PERSON ROOM. PER KIKA FROM [facility] ([phone]), THEY ARE ALSO ABLE TO ACCEPT PT AND PT WOULD GO TO A 2 PERSON ROOM BY THEIR NURSES' STATION. I SPOKE WITH PT'S DTR-IN-LAW, NABIL AND MADE HER AWARE OF THE ABOVE INFORMATION. SHE STATED THAT SHE WILL TOUR [facility] TODAY AND PROVIDE ME WITH HER CHOICE OF SNF AFTER THAT.
--- NOTE | 2016-12-03 12:29 | NUR ---
PT SITTING UP IN BED, ASSISTED WITH LUNCH, PT ZEB PO WELL.
--- NOTE | 2016-12-03 13:55 | NUR ---
PATIENT REFUSING HHN THERAPY NO DISTRESS NOTED
--- NOTE | 2016-12-03 15:05 | NUR ---
SS NOTE: I RECEIVED A CALL FROM PT'S DTR-IN-LAW, NABIL. SHE STATED THAT THEY TOURED [facility] AND HAVE CHOSEN TO SEND PT TO [facility] UPON DISCHARGE. SHE ALSO STATED THAT [facility] CAN CONTACT HER TO MAKE PAYMENT ARRANGEMENTS. PER DEBORAH FROM [facility] ([phone]), PT CAN GO TO ROOM 30A UPON DISCHARGE.
[2016-12-03 16:00] VITALS: BP 125/48
--- NOTE | 2016-12-03 16:00 | NUR ---
PT SLEEPING QUIETLY IN NAD, RESP EVEN UNLABORED ON 2L NC, PT AROUSES EASILY, DENIES PAIN, IVF INFUSING WELL, SITE CLEAR, WILL CONTINUE TO MONITOR.
--- NOTE | 2016-12-03 17:15 | NUR ---
OFFERED TO GET HER UP TO COMMODE BUT PT DECLINED PT STATES "I DON'T NEED TO GO", PT ALSO INFORMED THAT SHE HAS DIAPER ON, POSITION CHANGED FOR COMFORT, DENIES PAIN OR DISCOMFORT, IVF CONTINUES, SITE CLEAR, BED LOCKED IN LOW POSITION, CALL KEY WITHIN REACH, WILL CONTINUE TO MONITOR.
--- NOTE | 2016-12-03 19:20 | NUR ---
REPORT GIVEN TO BROOMCORN THRESHER NURSE ALBERT, PT STABLE, PILLOWS PLACED UNDER HER LEG AND HEAD OF THE BED ELEVATED PER PT REQUEST AT THIS TIME.
--- NOTE | 2016-12-03 19:21 | NUR ---
RECD. RESTING IN BED, AWAKE, A/0X2. RESPIRATION EVEN AND UNLABORED. ON 02 AT 2 LITERS BY N/C. IV OF D5NS AT 80 ML/HR INFUSING , LEFT WRIST G22. INCISION IN THE RIGHT HIP COVERED WITH DRESSING DRY AND INTACT. ON BILATERAL LEG SEQUENTIALS. PLAN OF CARE DISCUSSED. VERBALIZED UNDERSTANDING. WILL REPOSITION FREQUENTLY. MADE COMFORTABLE WITH PILLOWS. DENIES PAIN 0/10.
--- NOTE | 2016-12-03 19:39 | NUR ---
PT REFUSED HHNTX. WAS NOT VERY COOPERATIVE..SATS 97%ON 2LNC.DOES NOT WANT THEM
--- NOTE | 2016-12-03 20:00 | NUR ---
Patient's Plan of Care was discussed and reviewed with FAX MACHINE REPAIRER: SUZY.
[2016-12-03] MEDS: traZODone 50 MG TAB PO SCH (21:34)
[2016-12-03] MEDS: CITALOPRAM 20 MG TAB PO SCH (21:34)
--- NOTE | 2016-12-03 21:35 | NUR ---
DUE PO MEDICATIONS GIVEN, TOLERATED WELL.
--- NOTE | 2016-12-03 22:00 | NUR ---
ASSISTED TO TURN ON SIDES. MADE COMFORTABLE IN BED WITH PILLOWS.
[2016-12-04] VITALS: BP 142/67
[2016-12-04] MEDS: HYDROcodone/APAP 5/325 MG 1 TAB TAB PO PRN ×2 (00:54→05:34)
[2016-12-04] MEDS: ALBUTEROL SULFATE/IPRATROPIU 3 ML SOL IH SCH ×3 (01:00→13:51)
[2016-12-04] MEDS: DEXT 5% / NACL 0.9% 1,000 ML IV SCH ×2 (03:00→08:33)
--- NOTE | 2016-12-04 04:30 | NUR ---
CLEANSE AND REPOSITIONED IN BED.
[2016-12-04 05:54] LABS: BASOPHILS # (AUTO) 0.1 K/uL (0.00-0.22); BASOPHILS % (AUTO) 3.9 % (0.0-2.0); EOSINOPHILS # (AUTO) 0.3 K/uL (0-0.4); EOSINOPHILS % (AUTO) 9.3 % (0.0-4.0); HEMATOCRIT 27.4 % (36-48); HEMOGLOBIN 8.9 g/dL (12.0-16.0); LYMPHOCYTES # (AUTO) 0.8 K/uL (2.5-16.5); LYMPHOCYTES % (AUTO) 23.7 % (20.5-51.1); MEAN CORPUSCULAR HEMOGLOBIN 30 pg (27-31); MEAN CORPUSCULAR HGB CONC 33 g/dL (33-37); MEAN CORPUSCULAR VOLUME 92 fL (80-94); MONOCYTES # (AUTO) 0.6 K/uL (0.8-1.0); MONOCYTES % (AUTO) 15.7 % (1.7-9.3); NEUTROPHILS # (AUTO) 1.7 K/uL (1.8-7.7); NEUTROPHILS % (AUTO) 47.4 % (42.2-75.2); PLATELET COUNT (AUTO) 148 K/uL (140-450); RED BLOOD CELL COUNT(AUTO) 2.97 MIL/uL (4.20-5.40); WHITE BLOOD COUNT (AUTO) 3.5 K/uL (4.8-10.8)
[2016-12-04 06:09] LABS: ANION GAP 5.4 (8-16); CALCIUM 7.8 mg/dL (8.5-10.1); CHLORIDE 109 mmol/L (98-107); CREATININE 0.5 mg/dL (0.6-1.3); GLUCOSE 101 mg/dL (74-106); POTASSIUM 3.4 mmol/L (3.5-5.1); SODIUM SERUM 146 mmol/L (136-145); UREA NITROGEN, BLOOD 6 mg/dL (7-18)
[2016-12-04 06:10] LABS: MAGNESIUM 1.7 mg/dL (1.8-2.4); PHOSPHORUS 2.9 mg/dL (2.5-4.9)
[2016-12-04 06:25] LABS: FOLIC ACID 10.2 ng/mL (>3.0)
[2016-12-04] MEDS: BUDESONIDE 0.25 MG/2 ML NEBU INH SCH (06:45)
--- NOTE | 2016-12-04 06:45 | NUR ---
COMPLAINT OF PAIN ATTENDED PROMPTLY, MEDICATED ORDERED. CONDITION REMAIN STABLE. WILL ENDORSE TO AM NURSE FOR CONTINUITY OF CARE.
--- NOTE | 2016-12-04 07:15 | NUR ---
ASSUMED CONTINUITY OF CARE. NO SIGNS AND SYMPTOMS OF ACUTE DISTRESS NOTED. INITIAL ASSESSMENT DONE. RE-ORIENTED TO EVENTS AND SURROUNDINGS. KEEP COMFORTABLE ON BED. FALL PRECAUTION APPLIED. PRESSURE ULCER PRECAUTION WILL IMPLEMENT FOR PRESSURE ULCER PREVENTION. CALL LIGHT WITHIN REACH.
--- NOTE | 2016-12-04 07:15 | NUR ---
ENDORSED TO GAY STEVENS FOR CONTINUITY OF CARE.
--- NOTE | 2016-12-04 07:17 | NUR ---
Patient's Plan of Care was discussed and reviewed with [employer] 7 AND [employer] TEACHER: HILDA Chu
[2016-12-04 08:00] VITALS: BP 130/57
[2016-12-04] MEDS: FERROUS SULFATE 325 MG TABEC PO SCH (08:25)
[2016-12-04] MEDS: VALPROIC ACID 250 MG/5 ML UDC PO SCH (08:25)
[2016-12-04] MEDS: DOCUSATE SODIUM 100 MG GELCAP PO SCH (08:25)
[2016-12-04] MEDS: FAMOTIDINE 20 MG TAB PO SCH (08:26)
[2016-12-04] MEDS: amLODIPine 5 MG TAB PO SCH (08:26)
[2016-12-04] MEDS: QUEtiapine FUMARATE 25 MG TAB PO SCH (08:26)
[2016-12-04] MEDS: CYCLOBENZAPRINE 10 MG TAB PO SCH (08:27)
--- NOTE | 2016-12-04 09:08 | NUR ---
PHYSICAL THERAPIST CAME FOR PT EVAL AND TREATMENT. PT. CALM AND COOPERATIVE.
[2016-12-04] MEDS ORDERED: POTASSIUM CHLORIDE 10 MEQ TABER PO SCH (09:15)
--- NOTE | 2016-12-04 09:40 | NUR ---
REFUSED K-DUR [address] ESCAMILLA THAT PT. REFUSED K-DUR 40 MEQ PO.
[2016-12-04] MEDS ORDERED: MAG SULF 2000 MG/WATER PREMIX 50 ML IV SCH (10:00)
--- NOTE | 2016-12-04 11:20 | NUR ---
CALLED [facility] AND SPOKE TO CLAYTON BENZ FOR REPORT REGARDING PT. TRANSFER.
--- NOTE | 2016-12-04 11:45 | NUR ---
PT. DAUGHTER -NABIL CALLED, INFORMED OF PT. TRANSFER TO [facility] ON ROOM 30A.
--- NOTE | 2016-12-04 11:56 | NUR ---
PAGED DR. AGUILAR ABOUT PT. K 3.4. LEFT CALL BACK NUMBER.
[2016-12-04 12:00] VITALS: BP 137/81
--- NOTE | 2016-12-04 12:00 | NUR ---
DR. GAUILAR CALLED BACK, INFORMED PT. K 3.4 AND ASKED FOR ORDER BEFORE D/C. PER DR. AGUILAR SHE WILL PUT ORDER.
[2016-12-04] MEDS ORDERED: POTASSIUM CHLORIDE 20% 40 MEQ/15 ML UDC GT SCH (12:15)
--- NOTE | 2016-12-04 12:39 | NUR ---
CALLED AND SET UP GURNEY TRANSPORT TO [facility] FOR 3:30 P.M. PATIENT WILL HAVE O2 AT 3L. INFORMED TO CALL DAUGHTER IN LAW, NABIL, FOR PAYMENT. HILDA RASHID INFORMED. BRADLEY MAYINFORMATION TECHNOLOGY DATA ANALYST NURSE AWARE.
--- NOTE | 2016-12-04 12:40 | NUR ---
CALLED PT. DAUGHTER -NABIL JHAVERI AND INFORMED THAT PT. ROAD ROLLER OPERATOR HOT MIX TIME FOR TRANSFER IS 1530 PER PATIENT RELATIONS SPECIALIST -KINDRA.
--- NOTE | 2016-12-04 12:43 | NUR ---
CLINICAL REVIEW DONE.
--- NOTE | 2016-12-04 15:20 | NUR ---
EXPLAINED TO PT., PT. -PEGGY, AND PT. DAUGHTER IN-LAW -NABIL, ABOUT MD D/C ORDER, D/C INSTRUCTIONS AND TEACHING, PCP FOLLOW-UP, HOME MEDICATIONS RECONCILIATION TEACHING, DISEASE MANAGEMENT, INCISION CARE. PT. -PEGGY AND PT. DAUGHTER IN-LAW -NABIL VERBALIZED UNDERSTANDING.
[2016-12-04] MEDS: ACETAMINOPHEN 325 MG TAB PO PRN (15:44)
--- NOTE | 2016-12-04 16:05 | NUR ---
D/C VIA VASU WITH MEDICAL TRANSPORTER, ACCOMPANIED BY PT. -PEGGY AND PT. DAUGHTER IN-LAW -NABIL. IN STABLE CONDITION. INFORMED CHARGE NURSE JALEESA LAW.
== END 2016-12-04 16:05 | DRG 480 ==
LOC: MED 13:15 → MTU 17:37
PROVIDERS: ADMIT Student in an Organized Health Care Education/Training Program; ATTEND Student in an Organized Health Care Education/Training Program
PROC: 0QSB04Z Reposition Right Lower Femur with Internal Fixation Device, Open Approach (ICD-10-PCS; principal; 2016-11-30 10:00)
DX: S72.011A Unspecified intracapsular fracture of right femur, initial encounter for closed fracture (principal); G93.41 Metabolic encephalopathy; N17.0 Acute kidney failure with tubular necrosis; E43 Unspecified severe protein-calorie malnutrition; Z68.1 Body mass index [BMI] 19.9 or less, adult; D64.9 Anemia, unspecified; F41.9 Anxiety disorder, unspecified; I10 Essential (primary) hypertension; F03.90 Unspecified dementia, unspecified severity, without behavioral disturbance, psychotic disturbance, mood disturbance, and anxiety; E83.42 Hypomagnesemia; R74.0 Nonspecific elevation of levels of transaminase and lactic acid dehydrogenase [LDH]; Z99.81 Dependence on supplemental oxygen; J44.9 Chronic obstructive pulmonary disease, unspecified; E87.6 Hypokalemia; W01.0XXA Fall on same level from slipping, tripping and stumbling without subsequent striking against object, initial encounter; Y93.89 Activity, other specified; Z88.8 Allergy status to other drugs, medicaments and biological substances; Z86.73 Personal history of transient ischemic attack (TIA), and cerebral infarction without residual deficits; Y92.89 Other specified places as the place of occurrence of the external cause; Y99.8 Other external cause status; Z87.891 Personal history of nicotine dependence
CPT/HCPCS: 36415; 36600; 70450; 71010; 72192; 73060; 73080; 73502; 76705; 80048; 80053; 80305; 81001; 82150; 82553; 82607; 82728; 82746; 82803; 83036; 83540; 83690; 83735; 83880; 84100; 84439; 84443; 84484; 85025; 85045; 85610; 85730; 87081; 87086; 93005; 94640; 96372; 97110; 97116; 97140; 97530; 99285; C1713; J0360; J0690; J1170; J1644; J2060; J2175; J2270; J2704; J2920; J3010; J3475; J3490; J7030; J7042; J7060; J7620; J7626; Q0092